=== PATIENT | male | born 2000 | race Caucasian/White ===

== ENCOUNTER 2022-07-12 17:43 | Emergency (ER) | payer SELFPAY ==
[~2022-07-12] VITALS: Ht 185.4 cm; Wt 79.4 kg
[2022-07-12 17:54] VITALS: BP 125/49
[2022-07-12] MEDS ORDERED: NACL 0.9% 1,000 ML IV ONE (18:00)
[2022-07-12] MEDS ORDERED: NALOXONE PFS 2 MG/2 ML SYR ONE (18:08)
[2022-07-12] MEDS ORDERED: ONDANSETRON 4 MG/2 ML VIAL ONE (18:13)
[2022-07-12] MEDS ORDERED: KETOROLAC 30 MG/ML VIAL IVP ONE (18:15)
[2022-07-12] MEDS ORDERED: ONDANSETRON 4 MG/2 ML VIAL IVP ONE (18:15)
[2022-07-12] MEDS ORDERED: NALOXONE 0.4 MG/ML VIAL IVP ONE (18:20)
[2022-07-12 18:32] LABS: BASOPHILS # (AUTO) 0.1 K/uL (0.00-0.22); BASOPHILS % (AUTO) 0.4 % (0.0-2.0); EOSINOPHILS # (AUTO) 0.1 K/uL (0-0.4); EOSINOPHILS % (AUTO) 0.3 % (0.0-4.0); HEMATOCRIT 37.9 % (36-52); HEMOGLOBIN 12.5 g/dL (12.0-18.0); LYMPHOCYTES # (AUTO) 0.9 K/uL (2.0-11.5); LYMPHOCYTES % (AUTO) 5.1 % (20.5-51.1); MEAN CORPUSCULAR HEMOGLOBIN 29 pg (27-31); MEAN CORPUSCULAR HGB CONC 33 g/dL (33-37); MEAN CORPUSCULAR VOLUME 89.5 fL (80-94); MONOCYTES # (AUTO) 1.2 K/uL (0.8-1.0); MONOCYTES % (AUTO) 6.7 % (1.7-9.3); NEUTROPHILS # (AUTO) 15.2 K/uL (1.8-7.7); NEUTROPHILS % (AUTO) 87.5 % (42.2-75.2); PLATELET COUNT (AUTO) 314 K/uL (140-450); RED BLOOD CELL COUNT(AUTO) 4.24 MIL/uL (4.20-6.10); RED CELL DISTRIBUTION WIDTH 14.2 % (11.6-13.7); WHITE BLOOD COUNT (AUTO) 17.3 K/uL (4.5-11.0)
[2022-07-12 18:52] LABS: ALBUMIN 4.4 g/dL (3.4-5.0); ANION GAP 19.4 (8-16); ASPARTATE AMINOTRANSFERASE 34 U/L (15-37); CARBON DIOXIDE 23.1 mmol/L (21-32); CHLORIDE 103 mmol/L (98-107); GFR ARICAN-AMERICAN 55 mL/min (>90); GLUCOSE 55 mg/dL (74-106); POTASSIUM 3.5 mmol/L (3.5-5.1); SODIUM SERUM 142 mmol/L (136-145); TOTAL BILIRUBIN 0.6 mg/dL (0.0-1.0); UREA NITROGEN, BLOOD 15 mg/dL (7-18)
[2022-07-12 18:53] LABS: ACETAMINOPHEN < 0.5 ug/ml (10-30); SALICYLATE < 2.8 mg/dL (2.8-20.0)
[2022-07-12] MEDS ORDERED: LORazepam 2 MG/ML VIAL IVP ONE (19:40)
[2022-07-12] MEDS ORDERED: HALOPERIDOL IM 5 MG/ML VIAL IVP ONE (19:40)
[2022-07-12] MEDS ORDERED: diphenhydrAMINE 50 MG/ML VIAL IVP ONE (19:40)
[2022-07-12 20:33] LABS: BARBITURATE, URINE NEGATIVE ng/ml (NEG <=200)
[2022-07-12 20:34] LABS: BENZODIAZEPINE, URINE NEGATIVE ng/mL (NEG <=200); CANNABINOID, URINE POSITIVE ng/mL (NEG <=50); COCAINE, URINE NEGATIVE ng/mL (NEG <=300); OPIATE, URINE NEGATIVE ng/mL (NEG <=2000); PHENCYCLIDINE SCREEN,URINE NEGATIVE ng/mL (NEG <=25)
== END 2022-07-12 23:14 | disposition home or self-care (01) ==
LOC: MED 17:43
DX: F15.129 Other stimulant abuse with intoxication, unspecified (principal); Z20.822 Contact with and (suspected) exposure to COVID-19
CPT/HCPCS: 36415; 80053; 80305; 84484; 85025; 87426; 87635; 93005; 96361; 96374; 96375; 99284; C9803; G0480; G0482; J1200; J1630; J1885; J2060; J2310; J2405; J7030

== ENCOUNTER 2023-09-26 12:25 | Emergency (ER) | payer SELFPAY ==
[~2023-09-26] VITALS: Ht 182.9 cm; Wt 86.2 kg
[2023-09-26 12:29] VITALS: BP 170/60; PULSE 120; RESP 31; O2SAT 99
[2023-09-26] MEDS ORDERED: ONDANSETRON 4 MG ODT PO ONE (12:35)
[2023-09-26 12:51] VITALS: BP 170/60; PULSE 120; RESP 31; O2SAT 99
== END 2023-09-26 13:29 | disposition home or self-care (01) ==
LOC: MED 12:25
DX: T40.414A Poisoning by fentanyl or fentanyl analogs, undetermined, initial encounter (principal); J02.9 Acute pharyngitis, unspecified; J45.909 Unspecified asthma, uncomplicated; F12.90 Cannabis use, unspecified, uncomplicated; Z98.890 Other specified postprocedural states; Y92.89 Other specified places as the place of occurrence of the external cause
CPT/HCPCS: 99283; Q0162